=== PATIENT | female | born 1985 | race Caucasian/White ===

== ENCOUNTER 2018-06-12 06:15 | Day surgery (SDC) | payer OTHER ==
[~2018-06-12] VITALS: Ht 166.4 cm; Wt 98.0 kg
[2018-06-12] MEDS ORDERED: CEFAZOLIN SOD 1 GM/ ISO 50 ML PREMIX IV ONE (07:00)
[2018-06-12] MEDS ORDERED: LR 1,000 ML IV.SOLN IV ONE (08:04)
[2018-06-12] MEDS ORDERED: MIDAZOLAM HCL 5 MG/5 ML VIAL IVP ONE (08:04)
[2018-06-12] MEDS ORDERED: MIVACURIUM CHLORIDE 20 MG/10 ML VIAL (MIVACRON) INJ ONE (08:04)
[2018-06-12] MEDS ORDERED: PROPOFOL 200MG/ 20ML VIAL (DIPRIVAN) IV ONE (08:04)
[2018-06-12] MEDS ORDERED: SEVOFLURANE 15 MIN GAS INH ONE (08:04)
[2018-06-12] MEDS ORDERED: fentaNYL CITRATE/PF 100 MCG/2 ML AMP IVP ONE (08:04)
[2018-06-12] MEDS ORDERED: ONDANSETRON HCL 4 MG/2 ML VIAL IVP ONE (08:04)
[2018-06-12] MEDS ORDERED: LR 1,000 ML IV SCH (08:39)
[2018-06-12] MEDS ORDERED: MORPHINE 4 MG/ML INJ. SYRINGE IVP PRN ×3 (08:45)
[2018-06-12] MEDS ORDERED: METOCLOPRAMIDE HCL 10 MG/2 ML VIAL IVP PRN (08:45)
[2018-06-12] MEDS ORDERED: KETOROLAC TROMETHAMINE 30 MG VIAL IVP PRN (08:45)
[2018-06-12] MEDS ORDERED: MORPHINE 4 MG/ML INJ. SYRINGE ONE (09:02)
[2018-06-12] MEDS ORDERED: HYDROcodone/ACETAMIN 5-325 MG TAB (NORCO/ VICODIN) PO PRN (09:15)
[2018-06-12] MEDS ORDERED: ONDANSETRON HCL 4 MG/2 ML VIAL IVP PRN (09:15)
[2018-06-12 09:17] VITALS: BP_SYST 110
== END 2018-06-12 10:15 | disposition home or self-care (01) ==
LOC: SMU 06:15 → SDS 06:15
PROVIDERS: ATTEND Specialist
DX: N84.0 Polyp of corpus uteri (principal); E28.2 Polycystic ovarian syndrome; N71.9 Inflammatory disease of uterus, unspecified; E66.3 Overweight; Z98.890 Other specified postprocedural states; Z79.84 Long term (current) use of oral hypoglycemic drugs; Z79.899 Other long term (current) drug therapy
CPT/HCPCS: 58558; 88305; J0690; J2250; J2270; J2405; J2704; J3010; J7120